=== PATIENT | male | born 1975 | race Caucasian/White ===

== ENCOUNTER 2018-04-25 10:08 | Outpatient (CLI) | payer OTHER ==
--- NOTE | 2018-04-25 12:21 | RAD ---
RADIOGRAPH CERVICAL SPINE 2 VIEWS: 04/25/2018 HISTORY: A 42-year-old male with a traumatic C1 burst fracture. COMPARISON: No prior plain radiographs of the cervical spine. FINDINGS: On the open-mouth view, there is lateral displacement of the right and left lateral masses of the mark as relative to the lateral masses of the axis. Asymmetrical joint space narrowing of the right atlan toaxial joint. Alignment is normal on the lateral view, from C2-C3 through C6-C7. The levels inferi or to C7 are obscured by the shoulders on the lateral view. The inferior portion of a Halo device is present over the shoulders. IMPRESSION: 1. C1 Les burst fracture of the atlas. 2. Halo device. DARIO [] POS: ARELY
== END 2018-04-25 10:09 | disposition home or self-care (01) ==
LOC: BURRAD 10:08
PROVIDERS: ATTEND Neurological Surgery
DX: S12.01XA Stable burst fracture of first cervical vertebra, initial encounter for closed fracture (principal)
CPT/HCPCS: 72040